=== PATIENT | female | born 1980 | race Caucasian/White ===

== ENCOUNTER 2018-11-04 02:46 | Inpatient (IN) | payer MEDICAID ==
[2018-11-04 03:58] LABS: ADD MAN DIFF? NO
[2018-11-04] MEDS: ONDANSETRON 4 MG INJ IV ×3 (04:02→07:13)
[2018-11-04] MEDS: morphine 4 MG/ML VIAL IV ×3 (04:03→07:13)
[2018-11-04 04:07] LABS: ADD UMIC NO; UR ASCORBIC ACID NEGATIVE (NEGATIVE); UR BILIRUBIN (Dip) NEGATIVE (NEGATIVE); UR BLOOD (Dip) NEGATIVE (NEGATIVE); UR CLARITY SLIGHTLY CLOUDY (CLEAR); UR COLOR YELLOW (YELLOW); UR GLUCOSE (Dip) NEGATIVE (NEGATIVE); UR KETONES (Dip) NEGATIVE (NEGATIVE); UR LEUKOCYTE ESTERASE (Dip) NEGATIVE Leu/ul (NEGATIVE); UR MUCUS FEW /HPF (NONE SEEN); UR NITRITE (Dip) NEGATIVE (NEGATIVE); UR RBC 0 /HPF (0-5); UR SPECIFIC GRAVITY (Dip) 1.019 (1.003-1.030); UR SQUAMOUS EPITHELIAL CELL FEW /HPF (FEW); UR TOTAL PROTEIN (Dip) NEGATIVE (NEGATIVE); UR UROBILINOGEN (Dip) NEGATIVE (NEGATIVE); UR WBC 1 /HPF (0-5)
[2018-11-04 04:22] LABS: ALANINE AMINOTRANSFERASE 32 IU/L (13-69); ALBUMIN 4.2 g/dl (3.3-4.9); ALBUMIN/GLOBULIN RATIO 1.16; ALKALINE PHOSPHATASE 101 IU/L (42-121); ANION GAP 7 (5-13); ASPARTATE AMINO TRANSFERASE 22 IU/L (15-46); BASOPHIL # 0.1 10^3/ul (0.0-0.1); BASOPHILS % 0.5 % (0.0-2.0); BILIRUBIN,INDIRECT 0.4 mg/dl (0-1.1); BILIRUBIN,TOTAL 0.4 mg/dl (0.2-1.3); BLOOD UREA NITROGEN 8 mg/dl (7-20); CALCIUM 9.3 mg/dl (8.4-10.2); CARBON DIOXIDE 29 mmol/L (21-31); CHLORIDE 109 mmol/L (97-110); CREATININE 0.62 mg/dl (0.44-1.00); EOSINOPHILS # 0.1 10^3/ul (0.0-0.5); EOSINOPHILS % 1.1 % (0.0-7.0); Estimated GFR > 60 mL/min (>60); GLUCOSE 115 mg/dl (70-220); HEMATOCRIT 36.9 % (37.0-47.0); HEMOGLOBIN 11.7 g/dl (12.0-16.0); LIPASE 1504 U/L (23-300); LYMPHOCYTES # 2.2 10^3/ul (0.8-2.9); LYMPHOCYTES % 23.6 % (15.0-51.0); MEAN CORPUSCULAR HEMOGLOBIN 27.7 pg (29.0-33.0); MEAN CORPUSCULAR HGB CONC 31.7 g/dl (32.0-37.0); MEAN CORPUSCULAR VOLUME 87.4 fl (82.0-101.0); MEAN PLATELET VOLUME 9.8 fl (7.4-10.4); MONOCYTE # 0.7 10^3/ul (0.3-0.9); MONOCYTES % 7.5 % (0.0-11.0); NEUTROPHIL # 6.2 10^3/ul (1.6-7.5); PLATELET COUNT 363 10^3/UL (140-415); POTASSIUM 3.7 mmol/L (3.5-5.1); RED BLOOD COUNT 4.22 10^6/ul (4.20-5.40); RED CELL DISTRIBUTION WIDTH 14.6 % (11.5-14.5); SODIUM 145 mmol/L (135-144); TOTAL PROTEIN 7.8 g/dl (6.1-8.1)
[2018-11-04 04:22] LABS: WHITE BLOOD COUNT 9.3 10^3/ul (4.8-10.8)
[2018-11-04] MEDS: SOD CHLORIDE 0.9% 1,000 ML IV ×5 (06:06→23:09)
[2018-11-04] MEDS ORDERED: DOCUSATE SODIUM 100 MG CAP PO (06:30)
[2018-11-04] MEDS ORDERED: NACL 0.9% 3 ML SYG IV (06:30)
[2018-11-04] MEDS ORDERED: METOCLOPRAMIDE 10 MG INJ IV (06:30)
[2018-11-04] MEDS ORDERED: BISACODYL (EC) 5 MG TAB PO (06:30)
[2018-11-04] MEDS ORDERED: ONDANSETRON 4 MG INJ IV (06:30)
[2018-11-04] MEDS ORDERED: ACETAMINOPHEN 325 MG TAB PO (06:30)
[2018-11-04 06:50] LABS: ETHANOL < 10.0 mg/dl (0-0)
[2018-11-04] MEDS: HYDROmorphONE 0.5 MG/0.5 ML SYG IV ×4 (08:36→20:35)
[2018-11-04] MEDS: DIPHENHYDRAMINE 50 MG INJ IV ×3 (10:15→23:02)
[2018-11-04] MEDS: SINCALIDE 5 MCG INJ IV (13:00)
[2018-11-04 18:18] LABS: AMPHETAMINE/METHAMPHETAMINE Negative (NEGATIVE); BARBITURATES Negative (NEGATIVE); BENZODIAZEPINES Negative (NEGATIVE); CANNABINOIDS Negative (NEGATIVE); COCAINE Negative (NEGATIVE); OPIATES Positive (NEGATIVE)
[2018-11-05] MEDS: HYDROmorphONE 0.5 MG/0.5 ML SYG IV ×3 (00:29→08:53)
[2018-11-05] MEDS: DIPHENHYDRAMINE 50 MG INJ IV ×2 (03:25→07:38)
[2018-11-05 04:56] LABS: ADD MAN DIFF? NO
[2018-11-05 04:59] LABS: WHITE BLOOD COUNT 7.3 10^3/ul (4.8-10.8)
[2018-11-05 04:59] LABS: BASOPHIL # 0.1 10^3/ul (0.0-0.1); BASOPHILS % 0.7 % (0.0-2.0); EOSINOPHILS # 0.2 10^3/ul (0.0-0.5); EOSINOPHILS % 2.8 % (0.0-7.0); HEMATOCRIT 33.4 % (37.0-47.0); HEMOGLOBIN 10.6 g/dl (12.0-16.0); LYMPHOCYTES % 27.9 % (15.0-51.0); MEAN CORPUSCULAR HEMOGLOBIN 27.9 pg (29.0-33.0); MEAN CORPUSCULAR HGB CONC 31.7 g/dl (32.0-37.0); MEAN CORPUSCULAR VOLUME 87.9 fl (82.0-101.0); MEAN PLATELET VOLUME 9.4 fl (7.4-10.4); MONOCYTE # 0.5 10^3/ul (0.3-0.9); MONOCYTES % 6.7 % (0.0-11.0); NEUTROPHIL # 4.5 10^3/ul (1.6-7.5); NEUTROPHILS % 61.5 % (39.0-77.0); PLATELET COUNT 316 10^3/UL (140-415); RED CELL DISTRIBUTION WIDTH 14.2 % (11.5-14.5)
[2018-11-05 05:08] LABS: HEMOGLOBIN A1C 5.3 % (0-5.9)
[2018-11-05 05:19] LABS: ALANINE AMINOTRANSFERASE 32 IU/L (13-69); ALBUMIN 3.7 g/dl (3.3-4.9); ALBUMIN/GLOBULIN RATIO 1.27; ALKALINE PHOSPHATASE 90 IU/L (42-121); ANION GAP 7 (5-13); ASPARTATE AMINO TRANSFERASE 25 IU/L (15-46); BILIRUBIN,INDIRECT 0.6 mg/dl (0-1.1); BILIRUBIN,TOTAL 0.6 mg/dl (0.2-1.3); BLOOD UREA NITROGEN 8 mg/dl (7-20); CALCIUM 8.1 mg/dl (8.4-10.2); CARBON DIOXIDE 23 mmol/L (21-31); CHLORIDE 108 mmol/L (97-110); CHOL/HDL RATIO 3.1 RATIO; CHOLESTEROL 172 mg/dl (100-200); Estimated GFR > 60 mL/min (>60); GLUCOSE 88 mg/dl (70-220); HDL CHOLESTEROL 54 mg/dl (34-82); LDL CHOLESTEROL,CALCULATED 97 mg/dl; MAGNESIUM 1.7 mg/dl (1.7-2.5); POTASSIUM 3.3 mmol/L (3.5-5.1); SODIUM 138 mmol/L (135-144); TOTAL PROTEIN 6.6 g/dl (6.1-8.1); TRIGLYCERIDES 104 mg/dl (0-149)
[2018-11-05 05:21] LABS: LIPASE 399 U/L (23-300)
[2018-11-05] MEDS: SOD CHLORIDE 0.9% 1,000 ML IV (05:25)
[2018-11-05] MEDS: POTASSIUM CHLORIDE (SR) 20 MEQ TAB PO (09:22)
== END 2018-11-05 09:40 | disposition home or self-care (01) | DRG 439 ==
LOC: E/R 02:46 → MS1 05:31
DX: K85.90 Acute pancreatitis without necrosis or infection, unspecified (principal); Z68.42 Body mass index [BMI] 45.0-49.9, adult; E66.9 Obesity, unspecified
CPT/HCPCS: 36415; 74176; 78226; 80053; 80061; 80307; 81001; 81003; 81025; 83036; 83690; 83735; 84443; 85025; 93005; 96374; 96375; 99285-25

== ENCOUNTER 2018-11-15 16:08 | Inpatient (IN) | payer MEDICAID ==
[2018-11-15] MEDS: ONDANSETRON 4 MG INJ IV (17:22)
[2018-11-15] MEDS: SOD CHLORIDE 0.9% 1,000 ML IV ×2 (17:22→22:03)
[2018-11-15] MEDS: morphine 2 MG INJ IV (17:26)
[2018-11-15 17:30] LABS: ADD MAN DIFF? NO
[2018-11-15 17:31] LABS: BASOPHIL # 0.1 10^3/ul (0.0-0.1); BASOPHILS % 0.6 % (0.0-2.0); EOSINOPHILS # 0.2 10^3/ul (0.0-0.5); HEMATOCRIT 34.6 % (37.0-47.0); LYMPHOCYTES # 1.6 10^3/ul (0.8-2.9); LYMPHOCYTES % 15.5 % (15.0-51.0); MEAN CORPUSCULAR HEMOGLOBIN 27.6 pg (29.0-33.0); MEAN CORPUSCULAR HGB CONC 31.8 g/dl (32.0-37.0); MEAN CORPUSCULAR VOLUME 86.9 fl (82.0-101.0); MEAN PLATELET VOLUME 9.3 fl (7.4-10.4); MONOCYTE # 0.7 10^3/ul (0.3-0.9); MONOCYTES % 6.9 % (0.0-11.0); NEUTROPHIL # 7.5 10^3/ul (1.6-7.5); NEUTROPHILS % 74.6 % (39.0-77.0); PLATELET COUNT 402 10^3/UL (140-415); RED BLOOD COUNT 3.98 10^6/ul (4.20-5.40); RED CELL DISTRIBUTION WIDTH 14.5 % (11.5-14.5)
[2018-11-15 17:46] LABS: PROTIME 12.3 Sec (11.9-14.9)
[2018-11-15 17:51] LABS: ALANINE AMINOTRANSFERASE 24 IU/L (13-69); ALBUMIN 4.1 g/dl (3.3-4.9); ALBUMIN/GLOBULIN RATIO 1.13; ALKALINE PHOSPHATASE 90 IU/L (42-121); ANION GAP 8 (5-13); ASPARTATE AMINO TRANSFERASE 22 IU/L (15-46); BILIRUBIN,INDIRECT 0.3 mg/dl (0-1.1); BILIRUBIN,TOTAL 0.3 mg/dl (0.2-1.3); BLOOD UREA NITROGEN 8 mg/dl (7-20); CARBON DIOXIDE 25 mmol/L (21-31); CHLORIDE 105 mmol/L (97-110); CREATININE 0.67 mg/dl (0.44-1.00); Estimated GFR > 60 mL/min (>60); GLUCOSE 108 mg/dl (70-220); LIPASE 80 U/L (23-300); POTASSIUM 4.3 mmol/L (3.5-5.1); SODIUM 138 mmol/L (135-144); TOTAL PROTEIN 7.7 g/dl (6.1-8.1)
[2018-11-15] MEDS: HYDROmorphONE 0.5 MG/0.5 ML SYG IV ×2 (19:20→23:32)
[2018-11-15 20:02] LABS: ADD UMIC NO; UR ASCORBIC ACID NEGATIVE (NEGATIVE); UR BILIRUBIN (Dip) NEGATIVE (NEGATIVE); UR BLOOD (Dip) NEGATIVE (NEGATIVE); UR CLARITY CLEAR (CLEAR); UR COLOR STRAW (YELLOW); UR GLUCOSE (Dip) NEGATIVE (NEGATIVE); UR KETONES (Dip) NEGATIVE (NEGATIVE); UR LEUKOCYTE ESTERASE (Dip) NEGATIVE Leu/ul (NEGATIVE); UR NITRITE (Dip) NEGATIVE (NEGATIVE); UR SPECIFIC GRAVITY (Dip) 1.006 (1.003-1.030); UR TOTAL PROTEIN (Dip) NEGATIVE (NEGATIVE); UR UROBILINOGEN (Dip) NEGATIVE (NEGATIVE)
[2018-11-15] MEDS: DIPHENHYDRAMINE 50 MG INJ IV (20:07)
[2018-11-15] MEDS ORDERED: ONDANSETRON 4 MG INJ IV (20:30)
[2018-11-15] MEDS ORDERED: ACETAMINOPHEN 325 MG TAB PO ×2 (20:30→22:30)
[2018-11-15] MEDS: HYDROmorphONE 2 MG/ML SYG IV (20:59)
[2018-11-15] MEDS: PIPER-TAZO 3.375 GM IV (PMX) 100 ML IVPB (21:50)
[2018-11-15] MEDS ORDERED: morphine 2 MG INJ IV (22:30)
[2018-11-15] MEDS ORDERED: DOCUSATE SODIUM 100 MG CAP PO (22:30)
[2018-11-15] MEDS ORDERED: BISACODYL (EC) 5 MG TAB PO (22:30)
[2018-11-16] MEDS: HYDROmorphONE 1 MG/ML SYG IV ×7 (00:25→22:46)
[2018-11-16] MEDS: PIPER-TAZO 3.375 GM IV (PMX) 100 ML IVPB ×4 (02:13→17:59)
[2018-11-16] MEDS: SOD CHLORIDE 0.9% 1,000 ML IV ×2 (02:13→15:17)
[2018-11-16] MEDS: NACL 0.9% 3 ML SYG IV (02:16)
[2018-11-16] MEDS: HYDROmorphONE 0.5 MG/0.5 ML SYG IV (02:16)
[2018-11-16] MEDS ORDERED: DIPHENHYDRAMINE 50 MG INJ IV (03:00)
[2018-11-16] MEDS: DIPHENHYDRAMINE 50 MG INJ IV ×5 (03:17→22:05)
[2018-11-16 05:44] LABS: ADD MAN DIFF? NO
[2018-11-16 05:48] LABS: WHITE BLOOD COUNT 7.9 10^3/ul (4.8-10.8)
[2018-11-16 05:48] LABS: BASOPHILS % 0.5 % (0.0-2.0); EOSINOPHILS # 0.2 10^3/ul (0.0-0.5); EOSINOPHILS % 2.5 % (0.0-7.0); HEMATOCRIT 31.4 % (37.0-47.0); HEMOGLOBIN 9.9 g/dl (12.0-16.0); LYMPHOCYTES # 1.8 10^3/ul (0.8-2.9); LYMPHOCYTES % 22.1 % (15.0-51.0); MEAN CORPUSCULAR HEMOGLOBIN 27.9 pg (29.0-33.0); MEAN CORPUSCULAR HGB CONC 31.5 g/dl (32.0-37.0); MEAN CORPUSCULAR VOLUME 88.5 fl (82.0-101.0); MEAN PLATELET VOLUME 9.5 fl (7.4-10.4); MONOCYTE # 0.5 10^3/ul (0.3-0.9); MONOCYTES % 6.8 % (0.0-11.0); NEUTROPHIL # 5.4 10^3/ul (1.6-7.5); NEUTROPHILS % 67.8 % (39.0-77.0); PLATELET COUNT 359 10^3/UL (140-415); RED BLOOD COUNT 3.55 10^6/ul (4.20-5.40); RED CELL DISTRIBUTION WIDTH 14.6 % (11.5-14.5)
[2018-11-16 06:35] LABS: ALANINE AMINOTRANSFERASE 22 IU/L (13-69); ALBUMIN 3.5 g/dl (3.3-4.9); ALKALINE PHOSPHATASE 77 IU/L (42-121); ANION GAP 5 (5-13); ASPARTATE AMINO TRANSFERASE 22 IU/L (15-46); BILIRUBIN,INDIRECT 0.5 mg/dl (0-1.1); BILIRUBIN,TOTAL 0.5 mg/dl (0.2-1.3); BLOOD UREA NITROGEN 8 mg/dl (7-20); CALCIUM 8.4 mg/dl (8.4-10.2); CARBON DIOXIDE 24 mmol/L (21-31); CHLORIDE 108 mmol/L (97-110); CHOL/HDL RATIO 3.4 RATIO; CHOLESTEROL 186 mg/dl (100-200); CREATININE 0.69 mg/dl (0.44-1.00); Estimated GFR > 60 mL/min (>60); GLUCOSE 90 mg/dl (70-220); HDL CHOLESTEROL 54 mg/dl (34-82); LDL CHOLESTEROL,CALCULATED 119 mg/dl; MAGNESIUM 1.8 mg/dl (1.7-2.5); POTASSIUM 3.7 mmol/L (3.5-5.1); SODIUM 137 mmol/L (135-144); TOTAL PROTEIN 6.4 g/dl (6.1-8.1); TRIGLYCERIDES 67 mg/dl (0-149)
[2018-11-16 08:12] LABS: HEMOGLOBIN A1C 5.4 % (0-5.9)
[2018-11-17] MEDS: PIPER-TAZO 3.375 GM IV (PMX) 100 ML IVPB ×4 (00:33→17:56)
[2018-11-17] MEDS: DIPHENHYDRAMINE 50 MG INJ IV ×6 (02:18→23:39)
[2018-11-17] MEDS: HYDROmorphONE 1 MG/ML SYG IV ×3 (02:18→12:50)
[2018-11-17] MEDS: HYDROmorphONE 2 MG/ML SYG IV ×5 (04:04→21:28)
[2018-11-17] MEDS: SOD CHLORIDE 0.9% 1,000 ML IV ×2 (04:05→21:33)
[2018-11-17 06:11] LABS: ADD MAN DIFF? NO
[2018-11-17 06:28] LABS: WHITE BLOOD COUNT 6.6 10^3/ul (4.8-10.8)
[2018-11-17 06:28] LABS: BASOPHILS % 0.6 % (0.0-2.0); EOSINOPHILS # 0.2 10^3/ul (0.0-0.5); EOSINOPHILS % 3.2 % (0.0-7.0); HEMATOCRIT 34.9 % (37.0-47.0); HEMOGLOBIN 11.2 g/dl (12.0-16.0); LYMPHOCYTES # 1.5 10^3/ul (0.8-2.9); MEAN CORPUSCULAR HEMOGLOBIN 27.7 pg (29.0-33.0); MEAN CORPUSCULAR HGB CONC 32.1 g/dl (32.0-37.0); MEAN CORPUSCULAR VOLUME 86.4 fl (82.0-101.0); MEAN PLATELET VOLUME 9.5 fl (7.4-10.4); MONOCYTE # 0.5 10^3/ul (0.3-0.9); NEUTROPHIL # 4.3 10^3/ul (1.6-7.5); NEUTROPHILS % 65.9 % (39.0-77.0); PLATELET COUNT 374 10^3/UL (140-415); RED BLOOD COUNT 4.04 10^6/ul (4.20-5.40); RED CELL DISTRIBUTION WIDTH 14.4 % (11.5-14.5)
[2018-11-17 06:36] LABS: ANION GAP 8 (5-13); BLOOD UREA NITROGEN 6 mg/dl (7-20); CALCIUM 8.7 mg/dl (8.4-10.2); CARBON DIOXIDE 22 mmol/L (21-31); CHLORIDE 108 mmol/L (97-110); CREATININE 0.63 mg/dl (0.44-1.00); Estimated GFR > 60 mL/min (>60); GLUCOSE 83 mg/dl (70-220); POTASSIUM 4.3 mmol/L (3.5-5.1); SODIUM 138 mmol/L (135-144)
[2018-11-17 06:39] LABS: C-REACTIVE PROTEIN 2.8 mg/dl (0.0-0.9); MAGNESIUM 1.8 mg/dl (1.7-2.5)
[2018-11-17 07:25] LABS: ERYTHROCYTE SEDIMENTATION RATE 65 mm/Hr (0-20)
[2018-11-17] MEDS: ONDANSETRON 4 MG INJ IV (18:19)
[2018-11-17] MEDS ORDERED: ONDANSETRON 4 MG INJ IV (18:30)
[2018-11-18] MEDS: HYDROmorphONE 2 MG/ML SYG IV ×3 (00:42→06:36)
[2018-11-18] MEDS: PIPER-TAZO 3.375 GM IV (PMX) 100 ML IVPB ×3 (00:43→12:00)
[2018-11-18] MEDS: DIPHENHYDRAMINE 50 MG INJ IV ×2 (01:58→06:35)
[2018-11-18] MEDS: SOD CHLORIDE 0.9% 1,000 ML IV (02:44)
[2018-11-18 06:37] LABS: ADD MAN DIFF? NO
[2018-11-18 06:48] LABS: BASOPHIL # 0.1 10^3/ul (0.0-0.1); BASOPHILS % 0.6 % (0.0-2.0); EOSINOPHILS # 0.2 10^3/ul (0.0-0.5); EOSINOPHILS % 2.5 % (0.0-7.0); HEMATOCRIT 36.5 % (37.0-47.0); HEMOGLOBIN 11.6 g/dl (12.0-16.0); LYMPHOCYTES # 1.6 10^3/ul (0.8-2.9); MEAN CORPUSCULAR HEMOGLOBIN 27.4 pg (29.0-33.0); MEAN CORPUSCULAR HGB CONC 31.8 g/dl (32.0-37.0); MEAN CORPUSCULAR VOLUME 86.3 fl (82.0-101.0); MEAN PLATELET VOLUME 9.4 fl (7.4-10.4); MONOCYTE # 0.6 10^3/ul (0.3-0.9); MONOCYTES % 7.7 % (0.0-11.0); NEUTROPHIL # 5.5 10^3/ul (1.6-7.5); NEUTROPHILS % 68.9 % (39.0-77.0); PLATELET COUNT 394 10^3/UL (140-415); RED BLOOD COUNT 4.23 10^6/ul (4.20-5.40); RED CELL DISTRIBUTION WIDTH 14.2 % (11.5-14.5)
[2018-11-18 07:01] LABS: MAGNESIUM 1.8 mg/dl (1.7-2.5)
[2018-11-18 07:01] LABS: PHOSPHORUS 3.9 mg/dl (2.5-4.9)
[2018-11-18 07:03] LABS: ANION GAP 8 (5-13); BLOOD UREA NITROGEN 6 mg/dl (7-20); CALCIUM 9.2 mg/dl (8.4-10.2); CARBON DIOXIDE 26 mmol/L (21-31); CHLORIDE 106 mmol/L (97-110); CREATININE 0.72 mg/dl (0.44-1.00); Estimated GFR > 60 mL/min (>60); GLUCOSE 115 mg/dl (70-220); SODIUM 140 mmol/L (135-144)
[2018-11-18] MEDS: BARIUM SULF 2% 450 ML BTL (BERRY SMOOTHIE) PO (10:57)
[2018-11-18] MEDS ORDERED: IBUPROFEN 400 MG TAB PO (11:00)
== END 2018-11-18 15:45 | disposition left against medical advice (07) | DRG 394 ==
LOC: 2NE 11-16 01:10 → FTE 16:08 → 2NE 11-16 20:45
DX: K91.89 Other postprocedural complications and disorders of digestive system (principal); Z68.42 Body mass index [BMI] 45.0-49.9, adult; R10.31 Right lower quadrant pain; E66.01 Morbid (severe) obesity due to excess calories; D64.9 Anemia, unspecified; Z76.5 Malingerer [conscious simulation]; Y83.6 Removal of other organ (partial) (total) as the cause of abnormal reaction of the patient, or of later complication, without mention of misadventure at the time of the procedure
CPT/HCPCS: 36415; 74176; 80048; 80053; 80061; 81003; 81025; 83036; 83690; 83735; 84100; 84443; 85025; 85610; 85651; 85730; 86140; 87040-91; 87081; 96374; 96375; 99285-25